=== PATIENT | female | born 1945 | race Caucasian/White ===

== ENCOUNTER 2016-09-20 14:35 | Emergency (ER) | END 2016-09-20 18:35 | disposition home or self-care (01) ==

== ENCOUNTER 2016-09-21 08:57 | Day surgery (SDC) | payer MEDICARE, OTHER ==
[2016-09-21] MEDS ORDERED: ceFAZolin 1 GM VIAL ONE (09:12)
[2016-09-21] MEDS ORDERED: BUPIVACAINE 0.5% PF 30 ML VIAL SUBQ ONE ×3 (09:17→11:02)
[2016-09-21] MEDS ORDERED: LACTATED RINGERS 1,000 ML IV ONE (09:30)
[2016-09-21] MEDS ORDERED: PROPOFOL 200 MG/20 ML VIAL IVP ONE (11:15)
[2016-09-21] MEDS ORDERED: KETOROLAC 15 MG/ML VIAL ONE (11:55)
[2016-09-21] MEDS ORDERED: oxyCODONE 5 MG TABLET ONE (11:55)
== END 2016-09-21 08:58 | disposition home or self-care (01) ==
PROC: 02HV33Z Insertion of Infusion Device into Superior Vena Cava, Percutaneous Approach (ICD-10-PCS; 2016-09-21)
PROC: 0JH63XZ Insertion of Tunneled Vascular Access Device into Chest Subcutaneous Tissue and Fascia, Percutaneous Approach (ICD-10-PCS; principal; 2016-09-21 10:39)
DX: Z45.2 Encounter for adjustment and management of vascular access device (principal); C34.90 Malignant neoplasm of unspecified part of unspecified bronchus or lung; D64.89 Other specified anemias; Z87.891 Personal history of nicotine dependence; M89.8X8 Other specified disorders of bone, other site; K75.4 Autoimmune hepatitis; R47.01 Aphasia; D72.819 Decreased white blood cell count, unspecified; K21.9 Gastro-esophageal reflux disease without esophagitis
CPT/HCPCS: 36561; 71010; A9270; C1788; J7120